=== PATIENT | male | born 1955 | race Caucasian/White ===

== ENCOUNTER 2021-07-14 09:38 | Inpatient (IN) | payer MEDICARE, SELFPAY ==
[2021-07-14] VITALS (7 sets, daily range): BP systolic 135–180; BP diastolic 84–100; PULSE 91–112; RESP 14–22; TEMP 36.6; O2SAT 92–99
--- NOTE | ~2021-07-14 | CT_ITS ---
EXAMINATION: CTA chest PE protocol DATE: 07/14/2021 15:49 INDICATION: Shortness of breath. TECHNIQUE: Computed tomography angiography (CTA) of the chest was performed with 100 mL Omnipaque-350 intravenous contrast timed to evaluate the pulmonary arteries. Coronal maximum intensity projection 3D-reconstructions were created by the technologist. Automated exposure control and iterative reconst ruction technique were employed. The dose-length product was 618.63 mGy-cm. COMPARISON: None. FINDINGS: There is mild emphysema. There are groundglass opacities in the apical right upper lobe. Th ere are airspace and groundglass opacities in basilar left lower lobe. There is mild atelectasis in t he lungs. There is a small groundglass opacity in right upper lobe. There is a 9 mm nodule in right u pper lobe. There is a small left pleural effusion. There is enlargement of the radiation min right an d left ventricles of the heart. There are coronary artery calcifications. No pericardial effusion. Th ere are acute pulmonary emboli involving all lobes including emboli in the distal right and left main pulmonary arteries. There is a small sliding hiatal hernia. There is a 5.2 cm cyst in left kidney. T here is severe thoracic spondylosis. IMPRESSION: 1. Extensive acute bilateral pulmonary emboli with right heart strain. I called this result to Dr. Valentino ayoub. 2. Infarcts in right lung upper lobe and left lung lower lobe. 3. Mild emphysema. 4. Small left pleural effusion. 5. 9 mm right upper lobe pulmonary nodule suspicious for primary bronchogenic carcinoma. Noncontrast chest CT is recommended in 3 months. Reviewed, dictated and finalized at location A. RONMENTAL HEALTH INSPECTOR IMPRESSION: 1. Extensive acute bilateral pulmonary emboli with right heart strain. I called this result to Dr. Jones. 2. Infarcts in right lung upper lobe and left lung lower lobe. 3. Mild emphysema. 4. Small left pleural effusion. 5. 9 mm right upper lobe pulmonary nodule suspicious for primary bronchogenic c arcinoma. Noncontrast chest CT is recommended in 3 months.
--- NOTE | ~2021-07-14 | US_ITS ---
EXAMINATION: US venous doppler [facility] EXAM DATE: 07/14/2021 14:15 INDICATION: Left leg pain. TECHNIQUE: Multiple grayscale, color flow and Doppler images of the left lower extremity deep venous system obtained and reviewed. There is no prior study for comparison. FINDINGS: LEFT SIDE Common femoral: -------- Normal. Profunda femoral: ------- Normal. Femoral: Normal. Popliteal: Thrombosed. Posterior tibial: ---------Thrombosed. Peroneal: Thrombosed. Gastrocnemius: Not visualized. Soleus: Not visualized. Greater saphenous: ----- Normal. Lesser saphenous: ------ Not visualized. IMPRESSION: Positive for left popliteal, posterior tibial and peroneal DVT. I discussed this with Jane Noble MD at 07/14/2021 14:26 STOP ATTACHER. Reviewed, dictated and finalized at location A. ATTACHER
--- NOTE | ~2021-07-14 | XR_ITS ---
EXAMINATION: XR chest 1V portable DATE: 07/18/2021 10:11 INDICATION: Shortness of breath, pneumonia and pulmonary embolism. TECHNIQUE: frontal view of the chest was obtained. COMPARISON: Chest radiograph and CT dated 07/14/2021 FINDINGS: Persistent airspace opacities in the left lower lung zone. Right lung remains clear. No pulmonary jennifer ma, pleural effusion or pneumothorax. The cardiomediastinal silhouette is normal. Moderate thoracolum bar spondylosis. IMPRESSION: 1. Persistent opacities in the left lower lung zone with differential including pulmonary infarct, at electasis or pneumonia, the former favored based upon findings on prior CT. Reviewed, dictated and finalized at location B. BOYS TENNIS COACH IMPRESSION: 1. Persistent opacities in the left lower lung zone with differential including pulmonary infarct, atelectasis or pneumonia, the former favored based upon fin dings on prior CT.
--- NOTE | ~2021-07-14 | XR_ITS ---
EXAMINATION: XR chest 2V EXAM DATE: 07/14/2021 10:19 INDICATION: Dyspnea, cough. TECHNIQUE: Frontal and lateral projections of the chest obtained and reviewed. There is no prior lyssa dy for comparison. FINDINGS: Moderate amount of left lower lobe multisegmental airspace disease most likely pneumonia a nd atelectasis, with small parapneumonic effusion. Right lower lobe 5 mm nodular density probably gra nuloma. Follow-up chest x-ray recommended in one month. Cardiomediastinal silhouette is normal. There is no pneumothorax suspected. There are no osseous abnormalities identified. IMPRESSION: Multi segmental left lower lobe airspace disease probably pneumonia with small parapneum onic effusion may: Recommend one-month follow-up chest x-ray. Reviewed, dictated and finalized at location A. ER DYER IMPRESSION: Multi segmental left lower lobe airspace disease probably pneumoni a with small parapneumonic effusion may: Recommend one-month follow-up chest x- ray.
--- NOTE | 2021-07-14 09:45 | PC.NURSE ---
0945 Pt at intake desk stating I'm going to try to go to [facility] for a test, if that doesn't work I'll be back.
--- NOTE | 2021-07-14 09:51 | ECG_ITS ---
Measurements Intervals [place] Rate: 104 P: 79 IL: 119 QRS: 16 QRSD: 107 T: 140 QT: 380 QTc: 501 Interpretive Statements SINUS TACHYCARDIA WITH SHORT IL INTERVAL ATRIAL AND VENTRICULAR PREMATURE COMPLEXES CONSIDER INFERIOR INFARCT, AGE INDETERMINATE BORDERLINE ST-T WAVE ABNORMALITY- LAT/HIGH LAT LEADS BASELINE ARTIFACT- I, II, III, AVR, AVL, AVF ABNORMAL ECG Electronically Signed On 07-14-2021 10:45:31 MAP EDITOR by Shady Degroot D.O.
--- NOTE | 2021-07-14 12:37 | ED.GENADULT ---
HPI - General Adult General Chief complaint: Shortness of Breath/Dyspnea Stated complaint: SOB x1 1/2 Week getting worse Time Seen by Provider: 07/14/21 12:58 Source: patient History of Present Illness HPI narrative: Patient is a 66 y/o male complaining of mild SOB for 5 days. He states that his SOB gets worse with minimal exertion like walking and talking for while. He has slight cough. He has no chest pain or fever. He has some left leg pain. He states that his PCP gave him Rx for Z-pack and Decadron, but his symptoms did not improve. He was also test for COVID recently and it was negative. Related Data Allergies Allergy/AdvReac Type Severity Reaction Status Date / Time No Known Allergies Allergy Verified 07/14/21 09:50 Review of Systems Constitutional: Constitutional: Denies chills, Denies fever(s), Denies headache(s) and Denies weakness Eyes: Eyes: Denies blurry vision ENT: Denies headache(s) and Denies neck pain Cardiovascular: Cardiovascular: Denies chest pain and Denies dyspnea Respiratory: Respiratory: Reports cough and Reports dyspnea Gastrointestinal: Gastrointestinal: Denies abdominal pain, Denies diarrhea, Denies nausea and Denies vomiting Genitourinary: Genitourinary: Denies hematuria and Denies dysuria Musculoskeletal: Musculoskeletal: Denies back pain, Denies neck pain and Reports other (left leg pain) Neurologic: Denies headache(s) and Denies weakness Exam Const: General: no acute distress and well developed Orientation/consciousness: oriented to person, oriented to place, oriented to time and patient oriented x3 HENMT: Head: normocephalic Ears: external ears normal General nose exam: Normal external nose present Eyes: General: appearance normal, both eyes and all related structures Conjunctivae: conjunctivae normal Neck: Neck: normal visual inspection and full ROM Chest: Chest palpation & inspection: normal inspection of the chest and no tenderness Resp: Effort & Inspection: normal respiratory effort Auscultation: clear to auscultation bilaterally Cardio: Rate: regular rate Rhythm: regular rhythm GI: GI Palp: No abdominal tenderness and Yes Soft to palpation Skin: General skin exam: normal color and turgor normal Neuro: General: oriented to person, oriented to place, oriented to time and patient oriented x3 Cognition (Neuro): normal cognition Extrem: General: normal to inspection, full ROM and edema left Psych: Appearance: grossly normal Mental Status: mental status grossly normal Affect: normal affect Course Consultations Consultation #1: Discussed with Dr. Silvestre, who agrees to admit. Date: 07/14/21 Time: 16:32 Vital Signs Vital signs: Vital Signs Temperature 36.6 C 07/14/21 09:42 Pulse Rate 108 H 07/14/21 09:42 Respiratory Rate 19 07/14/21 09:42 Blood Pressure 172/84 H 07/14/21 09:42 Pulse Oximetry 94 07/14/21 09:42 Temperature 36.6 C 07/14/21 09:42 Pulse Rate 94 07/15/21 09:00 Respiratory Rate 21 H 07/15/21 09:00 Blood Pressure 153/97 H 07/15/21 08:00 Pulse Oximetry 98 07/15/21 09:00 Medical Decision Making Vital Signs Vital Signs: Vital Signs Temperature 36.6 C 07/14/21 09:42 Pulse Rate 108 H 07/14/21 09:42 Respiratory Rate 19 07/14/21 09:42 Blood Pressure 172/84 H 07/14/21 09:42 Pulse Oximetry 94 07/14/21 09:42 Temperature 36.6 C 07/14/21 09:42 Pulse Rate 94 07/15/21 09:00 Respiratory Rate 21 H 07/15/21 09:00 Blood Pressure 153/97 H 07/15/21 08:00 Pulse Oximetry 98 07/15/21 09:00 Lab Data Result diagrams: 07/15/21 04:54 07/14/21 12:39 Labs: Lab Results 07/14/21 07/14/21 07/14/21 Range/Units 12:39 12:39 12:39 WBC (4.5-10.0) K/mm3 RBC (4.6-6.20) M/mm3 Hgb (14.0-18.0) g/dL Hct (42.0-52.0) % MCV (80-100) fl MCH (26-34) pg MCHC (32-36) g/dl RDW (11.5-14.5) % Plt Count (150-375) k/mm3 MPV (7.4-10.4)
[2021-07-14 12:57] LABS: Lactic Acid Reflex 1.2 mmol/L (0.7-2.1)
[2021-07-14 12:58] LABS: INR 1.2; Prothrombin Time 14.8 Seconds (11.1-14.7)
[2021-07-14 12:59] LABS: Partial Thromboplastin Time 32.6 SECONDS (22.3-36.8)
[2021-07-14 13:00] LABS: Alanine Aminotransferase 33 U/L (4-50); Albumin Level 3.7 g/dL (3.5-5.1); Alkaline Phosphatase 117 U/L (38-126); Anion Gap 11 mmol/L (8-16); Aspartate Amino Transferase 45 U/L (17-59); Bilirubin,Total 0.7 mg/dL (0.2-1.3); Blood Urea Nitrogen 23 mg/dL (9-20); Calcium 9.1 mg/dL (8.4-10.2); Carbon Dioxide 21 mmol/L (22-30); Chloride 106 mmol/L (98-107); Estimated CRCL calculation 90 ml/min; Estimated Glomerular Filt Rate > 60; Glucose 121 mg/dL (65-110); Potassium 4.1 mmol/L (3.4-5.0); Sodium 138 mmol/L (137-145)
[2021-07-14 13:01] LABS: D Dimer 2.82 ug/mL (<0.48)
[2021-07-14 13:09] LABS: NT Pro B Type Natriuretic Pept 6300 pg/mL (5-100)
[2021-07-14 16:43] LABS: Basophils Percent Auto 0.2 % (0.2-1.2); Eosinophils Percent Auto 0.2 % (0-4.4); Hematocrit 45.8 % (42.0-52.0); Hemoglobin 15.3 g/dL (14.0-18.0); Immature Granulocyte Absolute 0.06 K/mm3 (0.00-0.031); Immature Granulocyte Percent A 0.5 % (0-0.5); Lymphocytes Absolute Auto 0.94 K/mm3 (0.9-3.2); Lymphocytes Percent Auto 7.1 % (18.3-44.2); Mean Corpuscular HGB Conc 33.4 g/dl (32-36); Mean Corpuscular Hemoglobin 28.2 pg (26-34); Mean Corpuscular Volume 84.5 fl (80-100); Mean Platelet Volume 10.4 fl (7.4-10.4); Monocytes Absolute Auto 0.2 K/mm3 (0.1-0.6); Monocytes Percent Auto 1.8 % (2.6-8.5); Neutrophils Percent Auto 90.2 % (45.5-73.1); Platelet Count Result 310 k/mm3 (150-375); Red Blood Count 5.42 M/mm3 (4.6-6.20); Red Cell Distribution Width 14.3 % (11.5-14.5); White Blood Count 13.3 K/mm3 (4.5-10.0)
[2021-07-14 16:52] LABS: INR 1.3; Prothrombin Time 15.5 Seconds (11.1-14.7)
[2021-07-14 16:53] LABS: Partial Thromboplastin Time 35.1 SECONDS (22.3-36.8)
[2021-07-14] MEDS: HEPARIN SODIUM 5,000 UNITS/ML VIAL 7000 UNITS IV PUSH (17:02)
[2021-07-14] MEDS: HEPARIN SOD/D5W 100 UNITS/ML 25,000 UNITS/250 ML BAG 15 UNITS IV CONT (17:03)
[2021-07-14 17:09] LABS: Troponin I 0.526 ng/mL (0.000-0.034)
--- NOTE | 2021-07-14 19:00 | PC.NURSE ---
pts isabel contacted at [phone] and made aware of pts condition and plan of care
--- NOTE | 2021-07-14 19:01 | PM.IMHP ---
H&P: HPI History of Present Illness Date/Time: 07/14/21 19:01 Chief Complaint: Shortness of breath Narrative: Patient is a 66 y/o male complaining of mild SOB for 5 days which has progressively gotten worse. He states that he initially noticed it upon minimal exertion with walking and talking. He also has been having some cough since past few days. No chest pain he has noticed some swelling in his left leg. He has seen his PCP in as given him Z-Noah and Decadron but the symptoms did not improve. He also tested for COVID which came back negative recently. 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 Of his ED evaluation showed bilateral PE may and the of left lower extremity DVT. He is admitted for further evaluation management. Review of Systems Review of Systems: - CONSTITUTIONAL: Denies weight loss, fever and chills. - HEENT: Denies changes in vision and hearing - RESPIRATORY: Reports SOB and cough. - CV: Denies palpitations and CP. - GI: Denies abdominal pain, nausea, vomiting and diarrhea. - : Denies dysuria and urinary frequency. - MSK: Denies myalgia and joint pain. Reports left lower leg pain and swelling - SKIN: Denies rash and pruritus. - NEUROLOGICAL: Denies headache and syncope. - PSYCHIATRIC: Denies recent changes in mood. Denies anxiety and depression. All systems reviewed & are unremarkable except as noted in HPI and below Constitutional: Constitutional: Reports fatigue and Reports weakness Neurologic: Reports weakness Endocrine: Endocrine: Reports fatigue [facility] Family History Family History (Updated 07/15/21 @ 13:23 by Connie Turner RN) Mother Lung cancer Social History Social History Smoking status: Former smoker Tobacco type: cigarettes Smoking end date: 06/29/21 Alcohol intake: former Substance use type: does not use Spiritual care concerns: No Meds Home Medications and Allergies Home Medications Medication Instructions Recorded Confirmed Type No Home Medications 07/15/21 07/15/21 History Allergies Allergy/AdvReac Type Severity Reaction Status Date / Time No Known Allergies Allergy Verified 07/15/21 13:03 Vital Signs Vital Signs - 24 hr 07/14/21 09:42 07/14/21 16:35 07/14/21 17:30 Temperature 97.8 F Pulse Rate 108 H 105 H 95 Respiratory Rate 19 14 14 Blood Pressure 172/84 H 180/99 H 135/92 H Pulse Oximetry 94 92 99 07/14/21 18:06 Temperature Pulse Rate 91 Respiratory Rate 14 Blood Pressure 146/100 H Pulse Oximetry 99 Exam Narrative: GENERAL: The patient is well developed, not in acute distress mild conversational dyspnea noted HEENT: Nonicteric sclerae, PERRLA, EOMI. Oropharynx clear. Moist mucous membranes. Conjunctivae appear well perfused. CHEST: Chest wall is nontender. HEART: Regular rate and rhythm without murmur, rubs, or gallops LUNGS: Coarse breath sound on auscultation bilaterally. no respiratory distress currently on oxygen supplementation ABDOMEN: Soft, positive bowel sounds, non-tender, no organomegaly. SKIN: No rash, no excessive bruising, petechiae, or purpura. NEUROLOGIC: Cranial nerves II-XII intact, alert and oriented x 3, no gross motor deficits EXTREMITIES: no cyanosis or clubbing, left lower extremity swelling noted H&P: Results Labs Labs: Short CBC 07/14/21 Range/Units 16:28 WBC 13.3 H (4.5-10.0) K/mm3 Hgb 15.3 (14.0-18.0) g/dL Hct 45.8 (42.0-52.0) % Plt Count 310 (150-375) k/mm3 BMP 07/14/21 12:39 Sodium 138 Potassium 4.1 Chloride 106 Carbon Dioxide 21 L BUN 23 H Creatinine 0.90 Glucose 121 H Calcium 9.1 Cardiac Enzymes 07/14/21 Range/Units 16:28 Troponin I 0.526 H* (0.000-0.034) ng/mL Liver Function 07/14/21 Range/Units 12:39 Total Bilirubin 0.7
[2021-07-14 19:02] LABS: EDCOVIDSCREEN Negative (Negative)
[2021-07-14 20:01] LABS: Troponin I 0.507 ng/mL (0.000-0.034)
[2021-07-14 23:26] LABS: INR 1.2; Prothrombin Time 15.2 Seconds (11.1-14.7)
[2021-07-14 23:27] LABS: Partial Thromboplastin Time 58.1 SECONDS (22.3-36.8)
[2021-07-14 23:40] LABS: Troponin I 0.485 ng/mL (0.000-0.034)
[2021-07-14] MEDS: HEPARIN SODIUM 5,000 UNITS/ML VIAL 3500 UNITS IV PUSH (23:42)
[2021-07-15] VITALS (11 sets, daily range): BP systolic 114–153; BP diastolic 82–105; PULSE 82–100; RESP 15–22; TEMP 36.3; O2SAT 95–99
--- NOTE | 2021-07-15 | ECHO_ITS ---
Patient Info Name: Alfredo Olmos Age: 66 years : 1955 Gender: Male Ht: 70 in Wt: 249 lbs BSA: 2.40 m2 HR: 87 bpm BP: 114 / 82 mmHg Heart Rhythm: Sinus Rhythm Exam Date: 07/15/2021 9:39 AM Exam Location: [facility] Pulmonary Patient Status: Inpatient Admit Date: 07/14/2021 Staff Ordering Physician: Danielito Silvestre MD Child Care Attendant: Isidoro Joseph, FARZANA, RT Attending Provider: Danielito Silvestre MD Exam Type: CA echo dop color flow w con Study Info Indications I26.09 - Other pulmonary embolism with acute cor pulmonale Complete two-dimensional, color flow and Doppler transthoracic echocardiogram is performed with contrast to opacify the left ventricle and to improve the deliniation of the left ventricle endocardial borders. Summary 1. Left ventricular chamber dimension is moderately enlarged. 2. Left ventricular systolic function is severely reduced, estimated at 25-30%. 3. There is mildly increased left ventricular wall thickness. 4. The left ventricular diastolic function is grade I diastolic dysfunction. 5. There is no obvious thrombus visualized in the left ventricle, although heavy trabeculation is noted at the apex. 6. There is no aortic valve stenosis. 7. There is mild mitral valve regurgitation. Left Ventricle Left ventricular chamber dimension is moderately enlarged. Left ventricular systolic function is severely reduced, estimated at 25-30%. There is mildly increased left ventricular wall thickness. The left ventricular diastolic function is grade I diastolic dysfunction. There is no obvious thrombus visualized in the left ventricle, although heavy trabeculation is noted at the apex. Right Ventricle Right ventricular chamber dimension is normal. Right ventricular systolic function is reduced. Prominent moderator band. Left Atria Left atrial chamber dimension is mildly enlarged. Right Atria Right atrial chamber dimension is mildly enlarged. Aortic Valve The aortic valve is trileaflet. There is no aortic valve stenosis. There is no aortic valve regurgitation. There is mild aortic valve calcification. Pulmonic Valve The pulmonic valve is not well visualized. There is trace pulmonic regurgitation. Mitral Valve The mitral valve has normal leaflets. There is mild mitral valve regurgitation. The mitral valve annulus is mildly calcified. Tricuspid Valve The tricuspid valve leaflets are normal. There is trace tricuspid valve regurgitation. Unable to estimate PA systolic pressure due to poor spectral resolution of tricuspid regurgitant jet velocity. Pericardium/Pleural The pericardium appears normal. There is no pericardial effusion. Inferior Vena Cava Dilated inferior vena cava with <50% collapse upon inspiration consistent with significantly elevated right atrial pressure, 15 mmHg. Aorta The aortic root size at the sinus of Valsalva is normal. There is mild aortic atherosclerosis. Left Ventricular Outflow Tract Name Value Normal LVOT 2D LVOT Diameter 2.35 cm LVOT Doppler LVOT Peak Gradient 2 mmHg LVOT Mean Gradient 1 mmHg
[2021-07-15 05:02] LABS: Basophils Percent Auto 0.1 % (0.2-1.2); Eosinophils Percent Auto 0.1 % (0-4.4); Hematocrit 40.7 % (42.0-52.0); Hemoglobin 13.6 g/dL (14.0-18.0); Immature Granulocyte Absolute 0.06 K/mm3 (0.00-0.031); Immature Granulocyte Percent A 0.4 % (0-0.5); Lymphocytes Absolute Auto 1.48 K/mm3 (0.9-3.2); Lymphocytes Percent Auto 9.6 % (18.3-44.2); Mean Corpuscular HGB Conc 33.4 g/dl (32-36); Mean Corpuscular Volume 83.9 fl (80-100); Mean Platelet Volume 10.4 fl (7.4-10.4); Monocytes Absolute Auto 1.1 K/mm3 (0.1-0.6); Neutrophils Absolute Auto 12.7 K/mm3 (1.3-6.7); Neutrophils Percent Auto 82.8 % (45.5-73.1); Platelet Count Result 279 k/mm3 (150-375); Red Blood Count 4.85 M/mm3 (4.6-6.20); White Blood Count 15.4 K/mm3 (4.5-10.0)
[2021-07-15 05:16] LABS: INR 1.2; Prothrombin Time 14.9 Seconds (11.1-14.7)
[2021-07-15 05:17] LABS: Partial Thromboplastin Time 28.1 SECONDS (22.3-36.8)
[2021-07-15] MEDS: HEPARIN SODIUM 5,000 UNITS/ML VIAL 7000 UNITS IV PUSH ×2 (05:41→19:26)
[2021-07-15] MEDS: ACETAMINOPHEN 325 MG TABLET 650 MG PO (08:30)
[2021-07-15] MEDS: PERFLUTREN LIPID MICROSPHERES 1.5 ML VIAL DILUTED TO 10 ML TOTAL VOLUME (09:49)
[2021-07-15 11:52] LABS: INR 1.3; Prothrombin Time 16.3 Seconds (11.1-14.7)
[2021-07-15 11:54] LABS: Partial Thromboplastin Time 111.5 SECONDS (22.3-36.8)
[2021-07-15] MEDS: HEPARIN SOD/D5W 100 UNITS/ML 25,000 UNITS/250 ML BAG 19 UNITS IV CONT (12:06)
--- NOTE | 2021-07-15 16:29 | PM.IMPN ---
Progress Note: A&P Assessment and Plan (1) Pulmonary embolism and infarction: Code(s): I26.99 - Other pulmonary embolism without acute cor pulmonale Status: Acute (2) Acute deep vein thrombosis (DVT) of left lower extremity: Qualifiers: Affected thrombotic vein of extremity: unspecified lower extremity distal vein Qualified Code(s): I82.4Z2 - Acute embolism and thrombosis of unspecified deep veins of left distal lower extremity Code(s): I82.402 - Acute embolism and thrombosis of unspecified deep veins of left lower extremity Status: Acute Additional Plan # Bialteral Porvoked PE started heparin drip recent travel history. Echocardiogram showed severe systolic dysfunction with EF 25-30%. Grade 1 diastolic dysfunction will consult cardiology # left ventricular systolic dysfunction severe 25-30% cardiology consultation # left acute DVT left posterior tibial popliteal and peroneal DVT # left pulmonary infarct? Pneumonia # 9 mm right upper lobe pulmonary nodule suspicious for primary bronchogenic carcinoma. Noncontrast chest CT recommended in 3 months. He is from [place] where he will need to continue for follow-up on this. He quit his smoking in 06/29/2021 smoked for many years prior to that # left lower lobe pneumonia CTA reviewed recent cough mild leukocytosis noted will treat with ceftriaxone and azithromycin # DVT proph: heparin # Full code Subjective Date/time seen: 07/15/21 16:29 Interval history: No overnight events. Remains on heparin drip. Coverage for oral anticoagulant being explored. Breathing is little better. He is going for an echocardiogram today Review of Systems Review of Systems: All systems reviewed & are unremarkable except as noted in HPI and below Exam Narrative: GENERAL: The patient is well developed, not in acute distress mild conversational dyspnea noted HEENT: Nonicteric sclerae, PERRLA, EOMI. Oropharynx clear. Moist mucous membranes. Conjunctivae appear well perfused. CHEST: Chest wall is nontender. HEART: Regular rate and rhythm without murmur, rubs, or gallops LUNGS: Coarse breath sound on auscultation bilaterally. no respiratory distress currently on oxygen supplementation ABDOMEN: Soft, positive bowel sounds, non-tender, no organomegaly. SKIN: No rash, no excessive bruising, petechiae, or purpura. NEUROLOGIC: Cranial nerves II-XII intact, alert and oriented x 3, no gross motor deficits EXTREMITIES: no cyanosis or clubbing, left lower extremity swelling noted Objective Data Vital Signs Vital Signs: Vital Signs - 24 hr 07/14/21 16:35 07/14/21 17:30 07/14/21 18:06 Pulse Rate 105 H 95 91 Respiratory Rate 14 14 14 Blood Pressure 180/99 H 135/92 H 146/100 H Pulse Oximetry 92 99 99 07/14/21 18:30 07/14/21 19:34 07/14/21 23:02 Pulse Rate 112 H 93 Respiratory Rate 18 22 H Blood Pressure 157/90 H 135/85 Pulse Oximetry 98 95 96 07/15/21 01:15 07/15/21 03:50 07/15/21 08:00 Pulse Rate 93 85 91 Respiratory Rate 18 22 H 18 Blood Pressure 130/84 114/82 153/97 H Pulse Oximetry 96 95 99 07/15/21 08:30 07/15/21 09:00 Pulse Rate 86 94 Respiratory Rate 16 21 H Blood Pressure Pulse Oximetry 95 98 Intake/Output Intake/Output: Intake & Output 07/12/21 07/13/21 07/14/21 07/15/21 23:59 23:59 23:59 23:59 Intake Total 250 300 Balance 250 300 Meds/Results Medications: Active Medications Generic Name Dose Route Start Last Admin Trade Name Freq PRN Reason Stop Dose Admin Acetaminophen 650 mg 07/15/21 08:28 07/15/21 08:30 Acetaminophen 325 Mg Tablet PO 650 mg Q6H PRN Administration Mild Pain (1-3) or Fever Heparin Sodium (Porcine) 7,000 units 07/14/21 15:57 07/15/21 05:41 Heparin Sodium 5,000 Units/Ml Vial IV PUSH 7,000 units PRN PRN Administration aPTT less than 55 seconds Heparin Sodium (Porcine) 3,500 units 07/14/21 15:57 07/14/21 23:42 Heparin Sodium 5,000 Units/Ml Vial IV PUSH 3,500 unit
[2021-07-15 18:59] LABS: INR 1.2; Prothrombin Time 15.4 Seconds (11.1-14.7)
[2021-07-15 19:01] LABS: Partial Thromboplastin Time 50.7 SECONDS (22.3-36.8)
[2021-07-15] MEDS: HEPARIN SOD/D5W 100 UNITS/ML 25,000 UNITS/250 ML BAG 23 UNITS IV CONT (19:34)
--- NOTE | 2021-07-15 21:26 | ADMGEN ---
This patient, Alfredo Olmos, was admitted to IMU Room 206-02. Patient/family oriented to hospital policies and general routines including ID bracelet, bed and alarms, visiting hours, pain management, procedures, bathroom and other care routines, personal items, smoking policy, room service/diet, and visiting hours. Information on how to activate the Rapid Response Team has been discussed. Patient/Family are encouraged to report perceived risks to care and to ask questions if they do not understand what they are told or what they should do.
[2021-07-16] VITALS (16 sets, daily range): BP systolic 126–140; BP diastolic 73–103; PULSE 72–95; RESP 16–20; TEMP 36.2–36.7; O2SAT 92–98
[2021-07-16 01:57] LABS: Partial Thromboplastin Time 166.7 SECONDS (22.3-36.8)
[2021-07-16] MEDS: HEPARIN SOD/D5W 100 UNITS/ML 25,000 UNITS/250 ML BAG 20 UNITS IV CONT (03:28)
--- NOTE | 2021-07-16 08:50 | PM.CNCAR ---
Assessment and Plan Assessment and plan (1) Pulmonary embolism and infarction: Code(s): I26.99 - Other pulmonary embolism without acute cor pulmonale Status: Acute Assessment and Plan: 66-year-old male with no known prior cardiovascular history; history of tobacco abuse. Patient admitted to the hospital with 5 day history of shortness of breath associated with left calf swelling. Found to have left lower extremity DVT, and extensive acute bilateral pulmonary emboli. -currently on unfractionated heparin for anticoagulation, monitor aPTT closely. Recommend 1 of the direct oral anticoagulants (apixaban or rivaroxaban) at discharge. Management as per primary team. 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 DVT likely provoked. On anticoagulation with unfractionated heparin, to be bridged to 1 of the direct oral anticoagulants at discharge as per primary team. Patient was advised to take precautions in future including frequent stops during long distance trips. (3) LV dysfunction: Code(s): I51.9 - Heart disease, unspecified Status: Acute Assessment and Plan: Patient's echocardiogram showed LV systolic dysfunction, in addition to mild RV systolic dysfunction. The exact etiology of LV systolic dysfunction is uncertain at this time. He does have signs and symptoms of respiratory tract infection, and is being treated for pneumonia. COVID-19 antigen is negative. Possible etiologies of CHF with reduced ejection fraction include myocarditis. Patient does have coronary risk factors including history of heavy tobacco abuse and underlying coronary artery disease cannot be completely ruled out at this time. -recommend COVID-19 RT PCR test -will initiate patient on low-dose carvedilol and ARB (can be switched to ARNI as an outpatient if patient is able to afford); dose to be uptitrated as tolerated. Other standard guideline directed medical treatment for CHF with reduced ejection fraction as an outpatient. No significant volume overload at present. May use diuresis as needed. -I spoke at length with the patient about his clinical condition including CHF with reduced ejection fraction and need for follow-up with a emergency veterinary technician as an outpatient. He may need ischemic workup if necessary as an outpatient. He verbalized understanding. (4) Pulmonary nodule: Code(s): R91.1 - Solitary pulmonary nodule Status: Acute Assessment and Plan: Pulmonary nodule was reported on the CT scan of the chest. Patient was advised to follow up with his primary care physician for further surveillance. He verbalized understanding. Patient was advised to continue to abstain from smoking. History of Present Illness History of Present Illness Consult date/time: 07/16/21 08:50 DATE OF CONSULT:07/16/2021 REASON FOR CONSULT: elevated troponin, pulmonary embolism REQUESTING PHYSICIAN: Danielito Silvestre MD CHIEF COMPLAINT: shortness of breath HPI: 66-year-old female with no known prior cardiac history; history of tobacco abuse. Patient presented to [facility] on 07/14/2019 to with 5 day history of shortness of breath and left leg calf swelling and discomfort. 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 Due to significant shortness of breath, he stopped in the local area and came to [facility] Emergency Room. Denied any chest pain, palpitation, dizziness syncope. Denied any fever chills. Patient has history of tobacco use, 1 pack per day f
[2021-07-16 09:25] LABS: Partial Thromboplastin Time 117.5 SECONDS (22.3-36.8)
[2021-07-16 16:38] LABS: Partial Thromboplastin Time 59.5 SECONDS (22.3-36.8)
[2021-07-16] MEDS: HEPARIN SOD/D5W 100 UNITS/ML 25,000 UNITS/250 ML BAG 18 UNITS IV CONT (16:38)
[2021-07-16] MEDS: HEPARIN SODIUM 5,000 UNITS/ML VIAL 3500 UNITS IV PUSH (16:44)
[2021-07-16] MEDS: ACETAMINOPHEN 325 MG TABLET 650 MG PO (16:59)
--- NOTE | 2021-07-16 18:31 | PM.IMPN ---
Progress Note: A&P Assessment and Plan (1) Pulmonary embolism and infarction: Code(s): I26.99 - Other pulmonary embolism without acute cor pulmonale Status: Acute (2) Acute deep vein thrombosis (DVT) of left lower extremity: Qualifiers: Affected thrombotic vein of extremity: unspecified lower extremity distal vein Qualified Code(s): I82.4Z2 - Acute embolism and thrombosis of unspecified deep veins of left distal lower extremity Code(s): I82.402 - Acute embolism and thrombosis of unspecified deep veins of left lower extremity Status: Acute Additional Plan # Bialteral Porvoked PE started heparin drip recent travel history. Echocardiogram showed severe systolic dysfunction with EF 25-30%. Grade 1 diastolic dysfunction will consult cardiology # left ventricular systolic dysfunction severe 25-30% cardiology consultation # left acute DVT left posterior tibial popliteal and peroneal DVT # left pulmonary infarct? Pneumonia # 9 mm right upper lobe pulmonary nodule suspicious for primary bronchogenic carcinoma. Noncontrast chest CT recommended in 3 months. He is from [place] where he will need to continue for follow-up on this. He quit his smoking in 06/29/2021 smoked for many years prior to that # left lower lobe pneumonia CTA reviewed recent cough mild leukocytosis noted will treat with ceftriaxone and azithromycin # DVT proph: heparin # Full code 07/16/21 18:31 07/14/2021 Interval history: Bialteral Porvoked PE started heparin drip recent travel history. Echocardiogram showed severe systolic dysfunction with EF 25-30%. Grade 1 diastolic dysfunction, patient remains clinically stable does get short winded with ambulation, will start the patient on oral anticoagulation tomorrow, will have PT OT evaluate the patient and further recommendation to follow Subjective Date/time seen: 07/16/21 18:31 07/14/2021 Interval history: Bialteral Porvoked PE started heparin drip recent travel history. Echocardiogram showed severe systolic dysfunction with EF 25-30%. Grade 1 diastolic dysfunction, patient remains clinically stable does get short winded with ambulation, will start the patient on oral anticoagulation tomorrow, will have PT OT evaluate the patient and further recommendation to follow Interval history: No overnight events. Remains on heparin drip. Coverage for oral anticoagulant being explored. Breathing is little better. He is going for an echocardiogram today Review of Systems Review of Systems: All systems reviewed & are unremarkable except as noted in HPI and below Exam Narrative: moderately obese Patient is comfortable, NAD HEENT: eyes are clear and none icteric LUNGS: normal respiratory effort ABD: distended Lower extremities: edema SKIN: nonjaundiced Neuro: grossly intact. Objective Data Vital Signs Vital Signs: Vital Signs - 24 hr 07/15/21 19:24 07/15/21 20:00 07/15/21 21:18 Temperature Pulse Rate 93 90 Respiratory Rate 15 20 Blood Pressure 129/84 142/105 H Pulse Oximetry 96 97 97 07/15/21 21:30 07/15/21 21:45 07/15/21 22:00 Temperature 97.4 F L Pulse Rate 100 89 82 Respiratory Rate 20 Blood Pressure 140/102 H Pulse Oximetry 97 07/16/21 00:00 07/16/21 02:00 07/16/21 03:56 Temperature 97.7 F Pulse Rate 76 72 Respiratory Rate 20 Blood Pressure 136/92 H Pulse Oximetry 95 96 07/16/21 04:00 07/16/21 06:00 07/16/21 08:00 Temperature 97.9 F 97.4 F L Pulse Rate 73 77 95 Respiratory Rate 20 18 Blood Pressure 126/85 134/88 Pulse Oximetry 98 95 07/16/21 10:00 07/16/21 12:00 07/16/21 14:00 Temperature 98.0 F Pulse Rate 92 89 90 Respiratory Rate 20 Blood Pressure 138/103 H Pulse Oximetry 92 07/16/21 16:00 07/16/21 18:00 Temperature 97.2 F L Pulse Rate 86 88 Respiratory Rate 16 Blood Pressure 126/90 Pulse Oximetry 98 Intake/Output Intake/Output: Intake & Output 07/13/21 07/14/21 07/15/21 07/16/21 23:
[2021-07-16] MEDS: carvediloL 3.125 MG TABLET PO (20:04)
[2021-07-16 22:59] LABS: Partial Thromboplastin Time 88.4 SECONDS (22.3-36.8)
[2021-07-17] VITALS (11 sets, daily range): BP systolic 114–153; BP diastolic 69–93; PULSE 72–91; RESP 14–20; TEMP 35.8–37.1; O2SAT 93–98
[2021-07-17] MEDS: HEPARIN SOD/D5W 100 UNITS/ML 25,000 UNITS/250 ML BAG 20 UNITS IV CONT (05:01)
[2021-07-17 05:26] LABS: Partial Thromboplastin Time 91.2 SECONDS (22.3-36.8)
[2021-07-17] MEDS: LOSARTAN POTASSIUM 25 MG TABLET PO (09:11)
[2021-07-17] MEDS: carvediloL 3.125 MG TABLET PO ×2 (09:11→20:41)
[2021-07-17] MEDS: APIXABAN 5 MG TABLET 10 MG PO ×2 (10:14→20:41)
--- NOTE | 2021-07-17 15:37 | PM.IMPN ---
Progress Note: A&P Assessment and Plan (1) Pulmonary embolism and infarction: Code(s): I26.99 - Other pulmonary embolism without acute cor pulmonale Status: Acute (2) Acute deep vein thrombosis (DVT) of left lower extremity: Qualifiers: Affected thrombotic vein of extremity: unspecified lower extremity distal vein Qualified Code(s): I82.4Z2 - Acute embolism and thrombosis of unspecified deep veins of left distal lower extremity Code(s): I82.402 - Acute embolism and thrombosis of unspecified deep veins of left lower extremity Status: Acute Additional Plan # Bialteral Porvoked PE started heparin drip recent travel history. Echocardiogram showed severe systolic dysfunction with EF 25-30%. Grade 1 diastolic dysfunction will consult cardiology # left ventricular systolic dysfunction severe 25-30% cardiology consultation # left acute DVT left posterior tibial popliteal and peroneal DVT # left pulmonary infarct? Pneumonia # 9 mm right upper lobe pulmonary nodule suspicious for primary bronchogenic carcinoma. Noncontrast chest CT recommended in 3 months. He is from [place] where he will need to continue for follow-up on this. He quit his smoking in 06/29/2021 smoked for many years prior to that # left lower lobe pneumonia CTA reviewed recent cough mild leukocytosis noted will treat with ceftriaxone and azithromycin # DVT proph: heparin # Full code 07/16/21 18:31 07/16/2021 Interval history: Bialteral Porvoked PE started heparin drip recent travel history. Echocardiogram showed severe systolic dysfunction with EF 25-30%. Grade 1 diastolic dysfunction, patient remains clinically stable does get short winded with ambulation, will start the patient on oral anticoagulation tomorrow, will have PT OT evaluate the patient and further recommendation to follow 07/17/2021 Interval history: patient remains clinically stable has no new complaint will start the patient on Eliquis and stop heparin drip, will start PT OT and further recommendation to follow, plan is to discharge the patient home tomorrow. Subjective Date/time seen: 07/17/21 15:37 07/16/2021 Interval history: Bialteral Porvoked PE started heparin drip recent travel history. Echocardiogram showed severe systolic dysfunction with EF 25-30%. Grade 1 diastolic dysfunction, patient remains clinically stable does get short winded with ambulation, will start the patient on oral anticoagulation tomorrow, will have PT OT evaluate the patient and further recommendation to follow 07/17/2021 Interval history: patient remains clinically stable has no new complaint will start the patient on Eliquis and stop heparin drip, will start PT OT and further recommendation to follow, plan is to discharge the patient home tomorrow. Review of Systems Review of Systems: All systems reviewed & are unremarkable except as noted in HPI and below Exam Narrative: moderately obese Patient is comfortable, NAD HEENT: eyes are clear and none icteric LUNGS: normal respiratory effort ABD: distended Lower extremities: edema SKIN: nonjaundiced Neuro: grossly intact. Objective Data Vital Signs Vital Signs: Vital Signs - 24 hr 07/16/21 16:00 07/16/21 18:00 07/16/21 20:00 Temperature 97.2 F L 97.7 F Pulse Rate 86 88 85 Respiratory Rate 16 20 Blood Pressure 126/90 136/73 Pulse Oximetry 98 95 07/16/21 20:04 07/16/21 22:00 07/16/21 23:11 Temperature 98 F Pulse Rate 88 76 81 Respiratory Rate 20 Blood Pressure 140/86 Pulse Oximetry 97 07/16/21 23:29 07/17/21 02:00 07/17/21 03:49 Temperature Pulse Rate 78 72 74 Respiratory Rate 20 20 Blood Pressure Pulse Oximetry 97 97 07/17/21 04:00 07/17/21 05:15 07/17/21 08:00 Temperature 98.3 F 98.7 F Pulse Rate 84 88 77 Respiratory Rate 20 20 Blood Pressure 139/75 153/81 H Pulse Oximetry 94 98 07/17/21 12:00 Temperature 98.5 F Pulse Rate 87 Respiratory Rate 20 Blood Pressure 127
--- NOTE | 2021-07-17 15:43 | PM.PNCARD ---
Progress Note: A&P Assessment and Plan (1) Dilated cardiomyopathy: Code(s): I42.0 - Dilated cardiomyopathy Status: Acute Assessment and Plan: 66-year-old male with no known prior cardiovascular history; history of tobacco abuse. Patient admitted to the hospital with 5 day history of shortness of breath associated with left calf swelling. Found to have left lower extremity DVT, and extensive acute bilateral pulmonary emboli. Moderate LV enlargement severe LV systolic dysfunction EF 25-30%, in addition to mild RV systolic dysfunction. The exact etiology of LV systolic dysfunction is uncertain at this time. -he continues treatment for pneumonia and is improving clinically. COVID-19 antigen is negative. -Possible etiologies of CHF with reduced ejection fraction include myocarditis. Patient does have coronary risk factors including history of heavy tobacco abuse and underlying coronary artery disease cannot be completely ruled out at this time. -continue carvedilol. He remains on losartan. Discussed preference to initiate Entresto 24/26 mg b.i.d.. Explained rationale and benefit in this regard. Nonetheless, losartan if coverage and or access questionable preferred in the short term until he can ride home with establish cardiovascular follow-up and transition to Entresto if possible. We discussed at length, all questions answered to his satisfaction. Will have care coordination attempt to clarify coverage in availability and if able transition prior to discharge. Other standard guideline directed medical treatment for CHF with reduced ejection fraction as an outpatient. No significant volume overload at present. May use diuresis as needed. -we discussed at length increased risk for sudden cardiac secondary to ventricular tachycardia and or ventricular fibrillation. We discussed given his LV dysfunction he remains at statistical increased risk and would reviewed options such as a life vest prior to discharge which may help prevent or reduce risk for as above. His ejection fraction is 25-30% and based upon this he does qualify for a life vest. He is interested but will discuss further with his . 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 Alternative plan to get his truck home as well as himself preferably without him driving to reduce risk to himself and anyone around him. He clearly understood this risk and verbalized that safety is his primary concern and he would not place others at risk in that regard. I explained the natural history of progression cardiomyopathy but this greatly depends upon the underlying etiology. We discussed potential workup including coronary angiography in the future but we would not be interested in interrupting anticoagulation in the near term due to inherent risk given his extensive pulmonary emboli. Explained the importance of immediate follow-up upon return home with cardiology and his primary care physician and possibly pulmonology given pulmonary embolism. Patient was given every opportunity to ask questions and all were answered to his satisfaction. Will have care coordination look into cost and coverage for life vest and Entresto. -explained the potential for improvement in his heart function depending on underlying cause with guideline directed medical therapy, recommendations, and follow-up. (2) Pulmonary embolism and infarction: Code(s): I26.99 - Other pulmonary embolism without acute cor pulmonale Status: Acute Assessment and Plan: Transitioned to apixaban 10 mg b.i.d. per PE protocol. Management as per primary team. (3) Acute deep vein thrombosis (DVT) of left lower extremity: Qualifiers: Affected thrombotic vein of extre
[2021-07-17] MEDS: ACETAMINOPHEN 325 MG TABLET 650 MG PO (18:40)
--- NOTE | 2021-07-17 20:06 | PC.NURSE ---
This patient, Alfredo Olmos, was transferred to [ [id number]] on 07/17/21 at 2006. Personal belongings sent with patient. Report given to [ Iqra monteiro]. Appropriate documentation sent with patient.
--- NOTE | 2021-07-17 20:15 | PC.NURSE ---
Pt received from IMU, report received from Alessia Sierra Pt is alert and oriented and introduced to staff.
[2021-07-18] VITALS (15 sets, daily range): BP systolic 124–145; BP diastolic 74–94; PULSE 78–86; RESP 16–20; TEMP 35.7–37.1; O2SAT 93–97
[2021-07-18 06:14] LABS: Partial Thromboplastin Time 38.9 SECONDS (22.3-36.8)
[2021-07-18] MEDS: ACETAMINOPHEN 325 MG TABLET 650 MG PO ×2 (08:27→18:08)
[2021-07-18] MEDS: APIXABAN 5 MG TABLET 10 MG PO ×2 (08:27→21:43)
[2021-07-18] MEDS: LOSARTAN POTASSIUM 25 MG TABLET PO (08:28)
[2021-07-18] MEDS: carvediloL 3.125 MG TABLET PO ×2 (08:28→12:02)
--- NOTE | 2021-07-18 09:33 | PM.PNCARD ---
Progress Note: A&P Assessment and Plan (1) Dilated cardiomyopathy: Code(s): I42.0 - Dilated cardiomyopathy Status: Acute Assessment and Plan: 66-year-old male with no known prior cardiovascular history; history of tobacco abuse. Patient admitted to the hospital with 5 day history of shortness of breath associated with left calf swelling. Found to have left lower extremity DVT, and extensive acute bilateral pulmonary emboli. Moderate LV enlargement severe LV systolic dysfunction EF 25-30%, in addition to mild RV systolic dysfunction. The exact etiology of LV systolic dysfunction is uncertain at this time. -he continues treatment for pneumonia and is improving clinically. COVID-19 antigen is negative. -Possible etiologies of CHF with reduced ejection fraction include myocarditis. Patient does have coronary risk factors including history of heavy tobacco abuse and underlying coronary artery disease cannot be completely ruled out at this time. -He agrees to LifeVest for prevention of sudden cardiac secondary to ventricular tachycardia and or ventricular fibrillation. Ejection fraction documented 25-30%. Dilated cardiomyopathy etiology unknown. Patient also with nonsustained ventricular tachycardia 24 beats early this morning in which he was symptomatic. Order placed. Discussed at length that demonstrating runs of nonsustained ventricular tachycardia statistically increases likelihood of potential life-threatening and/or fatal ventricular arrhythmias. (2) NSVT (nonsustained ventricular tachycardia): Code(s): I47.2 - Ventricular tachycardia Status: Acute Assessment and Plan: Periodic PVCs with 24 beat run of nonsustained ventricular tachycardia this morning in which he was symptomatic with complaints of fluttering. He states he has experienced this many times over the past several weeks. No associated near-syncope, syncope, shortness of breath or chest pain. - Strongly encouraged life vest. He has been advised he must not drive until otherwise cleared. He verbalizes understanding and agrees. He states he also does not feel up to it even if allowed. - check TSH, magnesium, BMP and CBC this morning. - Increase carvedilol to 6.25 mg b.i.d.. Given additional carvedilol 3.125 mg x 1 to equal 6.25 mg this morning. Continue telemetry. (3) Pulmonary embolism and infarction: Code(s): I26.99 - Other pulmonary embolism without acute cor pulmonale Status: Acute Assessment and Plan: Transitioned to apixaban 10 mg b.i.d. per PE protocol. Management as per primary team. Patient remains short of breath, feels better on O2. O2 evaluation recommended. Repeat chest x-ray. 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 Anticoagulation as above. We discussed it would not be advised that he would drive his truck back independently and there very well may be additional restrictions with regards to his LV dysfunction with without life vest. (5) Pulmonary nodule: Code(s): R91.1 - Solitary pulmonary nodule Status: Acute Assessment and Plan: Pulmonary nodule was reported on the CT scan of the chest. Patient was advised to follow up with his primary care physician for further surveillance as soon as he returns home. He verbalized understanding. Patient was advised to continue to abstain from smoking once again. (6) CAP (community acquired pneumonia): Code(s): J18.9 - Pneumonia, unspecified organism
[2021-07-18 09:50] LABS: Anion Gap 6 mmol/L (8-16); Blood Urea Nitrogen 18 mg/dL (9-20); Calcium 8.8 mg/dL (8.4-10.2); Carbon Dioxide 29 mmol/L (22-30); Chloride 103 mmol/L (98-107); Estimated CRCL calculation 79 ml/min; Estimated Glomerular Filt Rate > 60; Glucose 106 mg/dL (65-110); Magnesium 2.3 mg/dL (1.6-2.3); Potassium 4.1 mmol/L (3.4-5.0); Sodium 138 mmol/L (137-145)
[2021-07-18 09:58] LABS: Basophils Percent Auto 0.4 % (0.2-1.2); Eosinophils Percent Auto 5.1 % (0-4.4); Hematocrit 41.1 % (42.0-52.0); Hemoglobin 13.3 g/dL (14.0-18.0); Immature Granulocyte Absolute 0.05 K/mm3 (0.00-0.031); Immature Granulocyte Percent A 0.5 % (0-0.5); Lymphocytes Absolute Auto 2.07 K/mm3 (0.9-3.2); Lymphocytes Percent Auto 21.1 % (18.3-44.2); Mean Corpuscular HGB Conc 32.4 g/dl (32-36); Mean Corpuscular Hemoglobin 28.5 pg (26-34); Mean Corpuscular Volume 88.2 fl (80-100); Mean Platelet Volume 11.2 fl (7.4-10.4); Monocytes Percent Auto 7.3 % (2.6-8.5); Neutrophils Absolute Auto 6.4 K/mm3 (1.3-6.7); Neutrophils Percent Auto 65.6 % (45.5-73.1); Platelet Count Result 270 k/mm3 (150-375); Red Blood Count 4.66 M/mm3 (4.6-6.20); Red Cell Distribution Width 14.3 % (11.5-14.5); White Blood Count 9.8 K/mm3 (4.5-10.0)
[2021-07-18 09:59] LABS: Eosinophils Absolute Auto 0.5 K/mm3 (0-0.3); Monocytes Absolute Auto 0.7 K/mm3 (0.1-0.6)
--- NOTE | 2021-07-18 13:50 | PM.IMPN ---
Progress Note: A&P Assessment and Plan (1) Pulmonary embolism and infarction: Code(s): I26.99 - Other pulmonary embolism without acute cor pulmonale Status: Acute (2) Acute deep vein thrombosis (DVT) of left lower extremity: Qualifiers: Affected thrombotic vein of extremity: unspecified lower extremity distal vein Qualified Code(s): I82.4Z2 - Acute embolism and thrombosis of unspecified deep veins of left distal lower extremity Code(s): I82.402 - Acute embolism and thrombosis of unspecified deep veins of left lower extremity Status: Acute Additional Plan # Bialteral Porvoked PE started heparin drip recent travel history. Echocardiogram showed severe systolic dysfunction with EF 25-30%. Grade 1 diastolic dysfunction will consult cardiology # left ventricular systolic dysfunction severe 25-30% cardiology consultation # left acute DVT left posterior tibial popliteal and peroneal DVT # left pulmonary infarct? Pneumonia # 9 mm right upper lobe pulmonary nodule suspicious for primary bronchogenic carcinoma. Noncontrast chest CT recommended in 3 months. He is from [place] where he will need to continue for follow-up on this. He quit his smoking in 06/29/2021 smoked for many years prior to that # left lower lobe pneumonia CTA reviewed recent cough mild leukocytosis noted will treat with ceftriaxone and azithromycin # DVT proph: heparin # Full code 07/16/21 18:31 07/16/2021 Interval history: Bialteral Porvoked PE started heparin drip recent travel history. Echocardiogram showed severe systolic dysfunction with EF 25-30%. Grade 1 diastolic dysfunction, patient remains clinically stable does get short winded with ambulation, will start the patient on oral anticoagulation tomorrow, will have PT OT evaluate the patient and further recommendation to follow 07/17/2021 Interval history: patient remains clinically stable has no new complaint will start the patient on Eliquis and stop heparin drip, will start PT OT and further recommendation to follow, plan is to discharge the patient home tomorrow. 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 Subjective Date/time seen: 07/18/21 13:50 07/16/2021 Interval history: Bialteral Porvoked PE started heparin drip recent travel history. Echocardiogram showed severe systolic dysfunction with EF 25-30%. Grade 1 diastolic dysfunction, patient remains clinically stable does get short winded with ambulation, will start the patient on oral anticoagulation tomorrow, will have PT OT evaluate the patient and further recommendation to follow 07/17/2021 Interval history: patient remains clinically stable has no new complaint will start the patient on Eliquis and stop heparin drip, will start PT OT and further recommendation to follow, plan is to discharge the patient home tomorrow. 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 Review of Systems Review of Systems: All systems reviewed & are unremarkable except as noted in HPI and below Exam Narrative: moderately obese Patient is comfortable, NAD HEENT: eyes are clear and none icteric LUNGS: shonda
[2021-07-18] MEDS: carvediloL 6.25 MG TABLET PO (21:42)
[2021-07-19] VITALS (15 sets, daily range): BP systolic 117–151; BP diastolic 61–92; PULSE 75–88; RESP 16–20; TEMP 35.9–37; O2SAT 92–98
[2021-07-19] MEDS: ACETAMINOPHEN 325 MG TABLET 650 MG PO ×3 (00:15→20:18)
[2021-07-19 06:00] LABS: Partial Thromboplastin Time 41.9 SECONDS (22.3-36.8)
[2021-07-19] MEDS: carvediloL 6.25 MG TABLET PO ×2 (08:46→20:20)
[2021-07-19] MEDS: LOSARTAN POTASSIUM 25 MG TABLET PO (08:47)
[2021-07-19] MEDS: APIXABAN 5 MG TABLET 10 MG PO ×2 (08:47→20:19)
--- NOTE | 2021-07-19 11:51 | PM.PNCARD ---
Progress Note: A&P Assessment and Plan (1) Dilated cardiomyopathy: Code(s): I42.0 - Dilated cardiomyopathy Status: Acute Assessment and Plan: 66-year-old male with no known prior cardiovascular history; history of tobacco abuse. Patient admitted to the hospital with 5 day history of shortness of breath associated with left calf swelling. Found to have left lower extremity DVT, and extensive acute bilateral pulmonary emboli. Moderate LV enlargement severe LV systolic dysfunction EF 25-30%, in addition to mild RV systolic dysfunction. The exact etiology of LV systolic dysfunction is uncertain at this time cannot exclude myocarditis, underlying CAD given risk factors and or more likely nonischemic etiology. No anginal symptoms. Patient is not in decompensated heart failure. Patient has an appointment with a machine silver stripper back home on August 01. CHF counseling performed extensively. Importance of compliance with medications, sodium restriction, daily weight in close communication with his physicians critically important. He must not go without any of his medications especially Apixaban due to the more immediate potentially life-threatening or fatal potential -Given insurance hurdles he will need to consider transition to Entresto once he is home and established with his Electric Motor Rebuilder. For now, he will continue on Losartan 25 mg daily. -LifeVest has been fitted, he will not drive as instructed until advised by his Electric Motor Rebuilder. -He is compensated. CXR without pulmonary edema. Infiltrates attributed to pulmonary embolism/infarction as these correspond in location to PE on CT chest. -Check lipid panel. Advised would recommend initiation of statin therapy prior to discharge if LDL significantly elevated given the possibility of underlying CAD in light of new LV dysfunction. Patient verbalized understanding and agreed. All questions answered. We discussed this at length. Recommendation to follow. -Will hold off on empiric ASA given Apixaban at this time. -Stable per discharge from CV perspective. Disposition per Hospitalist Service. He says his family is coming to drive him back home. (2) NSVT (nonsustained ventricular tachycardia): Code(s): I47.2 - Ventricular tachycardia Status: Acute Assessment and Plan: No recurrence of NSVT or VT after increasing carvedilol to 6.25 mg twice daily. He previously had a 24 beat run of nonsustained ventricular tachycardia in which he was symptomatic with complaints of fluttering. He states he has experienced this many times over the past several weeks. No associated near-syncope, syncope, shortness of breath or chest pain. -Strongly encouraged compliance with LifeVest, he understands the importance and potential lifesaving role given his LV dysfunction. -Continue Carvedilol to 6.25 mg b.i.d.. (3) Pulmonary embolism and infarction: Code(s): I26.99 - Other pulmonary embolism without acute cor pulmonale Status: Acute Assessment and Plan: Transitioned to apixaban 10 mg b.i.d. per PE protocol. Management as per primary team. Extensively counseled he must not miss a single dose of Apixaban out of concern for recurrent progressive thromboembolic complications which may be lifethreatening and/or fatal. He verbalized understanding and agrees. All questions answered to his satisfaction. Advised he must fill all his medications as prescribed prior to departure from the area at the [facility] precaution ensuring he has appropriate medical support. (4) Acute deep vein thrombosis (DVT) of left lower extremity: Qualifiers: Affected thrombotic vein of extremity: unspecified lower extremity distal vein Qualified Code(s): I82.4Z2 - Acute embolism and thrombosis of unspecified deep veins of left distal lower extremity Code(s): I82.402 - Acute embolism and thrombosis of unspecified deep veins of left lower extremity Status: Acute Ass
[2021-07-19 12:07] LABS: Cholesterol 127 mg/dL (0-200); HDL Direct 22 mg/dL; Triglycerides 137 mg/dL (<150)
[2021-07-19 12:18] LABS: LDL Cholesterol Direct 80 mg/dL
--- NOTE | 2021-07-19 14:23 | PM.IMPN ---
Progress Note: A&P Assessment and Plan (1) Pulmonary embolism and infarction: Code(s): I26.99 - Other pulmonary embolism without acute cor pulmonale Status: Acute (2) Acute deep vein thrombosis (DVT) of left lower extremity: Qualifiers: Affected thrombotic vein of extremity: unspecified lower extremity distal vein Qualified Code(s): I82.4Z2 - Acute embolism and thrombosis of unspecified deep veins of left distal lower extremity Code(s): I82.402 - Acute embolism and thrombosis of unspecified deep veins of left lower extremity Status: Acute Additional Plan # Bialteral Porvoked PE started heparin drip recent travel history. Echocardiogram showed severe systolic dysfunction with EF 25-30%. Grade 1 diastolic dysfunction will consult cardiology # left ventricular systolic dysfunction severe 25-30% cardiology consultation # left acute DVT left posterior tibial popliteal and peroneal DVT # left pulmonary infarct? Pneumonia # 9 mm right upper lobe pulmonary nodule suspicious for primary bronchogenic carcinoma. Noncontrast chest CT recommended in 3 months. He is from [place] where he will need to continue for follow-up on this. He quit his smoking in 06/29/2021 smoked for many years prior to that # left lower lobe pneumonia CTA reviewed recent cough mild leukocytosis noted will treat with ceftriaxone and azithromycin # DVT proph: heparin # Full code 07/16/21 18:31 07/16/2021 Interval history: Bialteral Porvoked PE started heparin drip recent travel history. Echocardiogram showed severe systolic dysfunction with EF 25-30%. Grade 1 diastolic dysfunction, patient remains clinically stable does get short winded with ambulation, will start the patient on oral anticoagulation tomorrow, will have PT OT evaluate the patient and further recommendation to follow 07/17/2021 Interval history: patient remains clinically stable has no new complaint will start the patient on Eliquis and stop heparin drip, will start PT OT and further recommendation to follow, plan is to discharge the patient home tomorrow. 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 07/19/2021 Interval history:Patient remains clinically stable he was fitted with LifeVest, he has no complaint of chest pain or shortness of breath, patient can possibly discharge today however he does not have a ride back to [place], his company will send a bobcat driver/labor to pick him up tomorrow and plan is to discharge the patient. Subjective Date/time seen: 07/19/21 14:23 07/16/2021 Interval history: Bialteral Porvoked PE started heparin drip recent travel history. Echocardiogram showed severe systolic dysfunction with EF 25-30%. Grade 1 diastolic dysfunction, patient remains clinically stable does get short winded with ambulation, will start the patient on oral anticoagulation tomorrow, will have PT OT evaluate the patient and further recommendation to follow 07/17/2021 Interval history: patient remains clinically stable has no new complaint will start the patient on Eliquis and stop heparin drip, will start PT OT and further recommendation to follow, plan is to discharge the patient home tomorrow. 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
[2021-07-20] VITALS (13 sets, daily range): BP systolic 104–147; BP diastolic 59–85; PULSE 77–93; RESP 16–20; TEMP 36.4–36.8; O2SAT 93–96
[2021-07-20 05:59] LABS: Hematocrit 40.8 % (42.0-52.0); Hemoglobin 13.4 g/dL (14.0-18.0); Mean Corpuscular HGB Conc 32.8 g/dl (32-36); Mean Corpuscular Hemoglobin 27.7 pg (26-34); Mean Corpuscular Volume 84.3 fl (80-100); Mean Platelet Volume 10.3 fl (7.4-10.4); Platelet Count Result 353 k/mm3 (150-375); Red Blood Count 4.84 M/mm3 (4.6-6.20); Red Cell Distribution Width 13.6 % (11.5-14.5); White Blood Count 11.3 K/mm3 (4.5-10.0)
[2021-07-20 06:14] LABS: Anion Gap 7 mmol/L (8-16); Blood Urea Nitrogen 21 mg/dL (9-20); Carbon Dioxide 29 mmol/L (22-30); Chloride 102 mmol/L (98-107); Estimated CRCL calculation 79 ml/min; Estimated Glomerular Filt Rate > 60; Glucose 108 mg/dL (65-110); Potassium 4.2 mmol/L (3.4-5.0); Sodium 138 mmol/L (137-145)
[2021-07-20] MEDS: ATORVASTATIN 10 MG TABLET PO (08:02)
[2021-07-20] MEDS: carvediloL 6.25 MG TABLET PO ×2 (08:02→20:14)
[2021-07-20] MEDS: LOSARTAN POTASSIUM 25 MG TABLET PO (08:02)
[2021-07-20] MEDS: APIXABAN 5 MG TABLET 10 MG PO ×2 (08:02→20:14)
--- NOTE | 2021-07-20 13:09 | PM.IMPN ---
Progress Note: A&P Assessment and Plan (1) Pulmonary embolism and infarction: Code(s): I26.99 - Other pulmonary embolism without acute cor pulmonale Status: Acute (2) Acute deep vein thrombosis (DVT) of left lower extremity: Qualifiers: Affected thrombotic vein of extremity: unspecified lower extremity distal vein Qualified Code(s): I82.4Z2 - Acute embolism and thrombosis of unspecified deep veins of left distal lower extremity Code(s): I82.402 - Acute embolism and thrombosis of unspecified deep veins of left lower extremity Status: Acute Additional Plan # Bialteral Porvoked PE started heparin drip recent travel history. Echocardiogram showed severe systolic dysfunction with EF 25-30%. Grade 1 diastolic dysfunction will consult cardiology # left ventricular systolic dysfunction severe 25-30% cardiology consultation # left acute DVT left posterior tibial popliteal and peroneal DVT # left pulmonary infarct? Pneumonia # 9 mm right upper lobe pulmonary nodule suspicious for primary bronchogenic carcinoma. Noncontrast chest CT recommended in 3 months. He is from [place] where he will need to continue for follow-up on this. He quit his smoking in 06/29/2021 smoked for many years prior to that # left lower lobe pneumonia CTA reviewed recent cough mild leukocytosis noted will treat with ceftriaxone and azithromycin # DVT proph: heparin # Full code 07/16/21 18:31 07/16/2021 Interval history: Bialteral Porvoked PE started heparin drip recent travel history. Echocardiogram showed severe systolic dysfunction with EF 25-30%. Grade 1 diastolic dysfunction, patient remains clinically stable does get short winded with ambulation, will start the patient on oral anticoagulation tomorrow, will have PT OT evaluate the patient and further recommendation to follow 07/17/2021 Interval history: patient remains clinically stable has no new complaint will start the patient on Eliquis and stop heparin drip, will start PT OT and further recommendation to follow, plan is to discharge the patient home tomorrow. 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 07/19/2021 Interval history:Patient remains clinically stable he was fitted with LifeVest, he has no complaint of chest pain or shortness of breath, patient can possibly discharge today however he does not have a ride back to [place], his company will send a clamp truck driver to pick him up tomorrow and plan is to discharge the patient. 07/20/2021 Interval history:Patient remains clinically stable he was fitted with LifeVest on 08/19, he has no complaint of chest pain or shortness of breath, patient can possibly discharge today however he does not have a ride back to [place], his company will send a clamp truck driver to pick him up tomorrow and plan is to discharge the patient. Subjective Date/time seen: 07/20/21 13:09 07/16/2021 Interval history: Bialteral Porvoked PE started heparin drip recent travel history. Echocardiogram showed severe systolic dysfunction with EF 25-30%. Grade 1 diastolic dysfunction, patient remains clinically stable does get short winded with ambulation, will start the patient on oral anticoagulation tomorrow, will have PT OT evaluate the patient and further recommendation to follow 07/17/2021 Interval history: patient remains clinically stable has no new complaint will start the patient on Eliquis and stop heparin drip, will start PT OT and further recommendation to follow, plan is to discharge the patient home tomorrow. 07/18/2021 Interval history:Yissel
[2021-07-20] MEDS: ACETAMINOPHEN 325 MG TABLET 650 MG PO (17:48)
[2021-07-21] VITALS (9 sets, daily range): BP systolic 121–154; BP diastolic 69–88; PULSE 73–86; RESP 14–18; TEMP 36.6–37.1; O2SAT 92–94
[2021-07-21] MEDS: APIXABAN 5 MG TABLET 10 MG PO (08:39)
[2021-07-21] MEDS: ATORVASTATIN 10 MG TABLET PO (08:40)
[2021-07-21] MEDS: LOSARTAN POTASSIUM 25 MG TABLET PO (08:40)
[2021-07-21] MEDS: carvediloL 6.25 MG TABLET PO (08:40)
--- NOTE | 2021-07-21 10:06 | PM.DS ---
DS: Admitting Diagnosis Discharge Date 07/21/2021 Admitting Diagnosis shortness of breath DS: Discharge Diagnosis Discharge Diagnosis (1) Pulmonary embolism and infarction: Code(s): I26.99 - Other pulmonary embolism without acute cor pulmonale Status: Acute (2) Acute deep vein thrombosis (DVT) of left lower extremity: Qualifiers: Affected thrombotic vein of extremity: unspecified lower extremity distal vein Qualified Code(s): I82.4Z2 - Acute embolism and thrombosis of unspecified deep veins of left distal lower extremity Code(s): I82.402 - Acute embolism and thrombosis of unspecified deep veins of left lower extremity Status: Acute DS: Summary Hospital Course Reason for hospitalization: Chief Complaint: Shortness of breath Narrative: Patient is a 66 y/o male complaining of mild SOB for 5 days which has progressively gotten worse. He states that he initially noticed it upon minimal exertion with walking and talking. He also has been having some cough since past few days. No chest pain he has noticed some swelling in his left leg. He has seen his PCP in as given him Z-Noah and Decadron but the symptoms did not improve. He also tested for COVID which came back negative recently. 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 Of his ED evaluation showed bilateral PE may and the of left lower extremity DVT. He is admitted for further evaluation management. Hospital Course: # Bialteral Porvoked PE started heparin drip recent travel history. Echocardiogram showed severe systolic dysfunction with EF 25-30%. Grade 1 diastolic dysfunction will consult cardiology # left ventricular systolic dysfunction severe 25-30% cardiology consultation # left acute DVT left posterior tibial popliteal and peroneal DVT # left pulmonary infarct? Pneumonia # 9 mm right upper lobe pulmonary nodule suspicious for primary bronchogenic carcinoma. Noncontrast chest CT recommended in 3 months. He is from [place] where he will need to continue for follow-up on this. He quit his smoking in 06/29/2021 smoked for many years prior to that # left lower lobe pneumonia CTA reviewed recent cough mild leukocytosis noted will treat with ceftriaxone and azithromycin # DVT proph: heparin # Full code 07/16/21 18:31 07/16/2021 Interval history: Bialteral Porvoked PE started heparin drip recent travel history. Echocardiogram showed severe systolic dysfunction with EF 25-30%. Grade 1 diastolic dysfunction, patient remains clinically stable does get short winded with ambulation, will start the patient on oral anticoagulation tomorrow, will have PT OT evaluate the patient and further recommendation to follow 07/17/2021 Interval history: patient remains clinically stable has no new complaint will start the patient on Eliquis and stop heparin drip, will start PT OT and further recommendation to follow, plan is to discharge the patient home tomorrow. 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 07/19/2021 Interval history:Patient remains clinically stable he was fitted with LifeVest, he has no complaint of chest pain or shortness of breath, patient can possibly discharge today however he does not have a ride back to [place], his company will send a cdl dedicated truck driver to pick him up tomorrow and plan is to discharge the patient. 07/20/2021 Interval history:Patient remains clinically stable he was fitted with LifeVest on 08/19, he has no
== END 2021-07-21 16:25 | disposition home or self-care (01) | DRG 175 ==
LOC: ANHED 17:01 → ANHIMU 07-15 11:22 → ANH2MED 07-17 23:23 → ANHIMU 07-24 11:44
PROVIDERS: Emergency Medicine; Internal Medicine; Internal Medicine Cardiovascular Disease; Admitting Provider Internal Medicine; Emergency Provider Emergency Medicine; Visit Provider Family Medicine
DX: I26.99 Other pulmonary embolism without acute cor pulmonale (principal); J18.9 Pneumonia, unspecified organism; I82.432 Acute embolism and thrombosis of left popliteal vein; I82.442 Acute embolism and thrombosis of left tibial vein; I82.452 Acute embolism and thrombosis of left peroneal vein; C34.11 Malignant neoplasm of upper lobe, right bronchus or lung; I42.0 Dilated cardiomyopathy; I47.2 Ventricular tachycardia; Z20.822 Contact with and (suspected) exposure to COVID-19; E66.9 Obesity, unspecified; Z68.32 Body mass index [BMI] 32.0-32.9, adult; Z87.891 Personal history of nicotine dependence; R91.1 Solitary pulmonary nodule
CPT/HCPCS: 36415; 71045; 71046; 71275; 80048; 80053; 80061; 83605; 83735; 83880; 84443; 84484; 85025; 85027; 85380; 85610; 85730; 87040; 87426; 87804; 93005; 93971; 99285; A9270; C8929; C9803; J0456; J0696; J1644; Q9957; Q9967